=== PATIENT | male | born 1955 | race Caucasian/White ===

== ENCOUNTER 2017-04-24 05:43 | Inpatient (IN) | payer OTHER ==
[2017-04-24] MEDS ORDERED: CEFAZOLIN 1 GM/50 ML (PMX) 50 ML IVPB (06:00)
[2017-04-24 06:37] LABS: ADD MAN DIFF? NO
[2017-04-24 06:40] LABS: WHITE BLOOD COUNT 5.9 10^3/ul (4.8-10.8)
[2017-04-24 06:40] LABS: BASOPHIL # 0.1 10^3/ul (0.0-0.1); BASOPHILS % 0.9 % (0.0-2.0); EOSINOPHILS # 0.2 10^3/ul (0.0-0.5); EOSINOPHILS % 3.6 % (0.0-7.0); HEMATOCRIT 44.7 % (42.0-52.0); HEMOGLOBIN 15.4 g/dl (14.0-18.0); LYMPHOCYTES # 1.8 10^3/ul (0.8-2.9); LYMPHOCYTES % 30.9 % (15.0-51.0); MEAN CORPUSCULAR HEMOGLOBIN 31.5 pg (29.0-33.0); MEAN CORPUSCULAR HGB CONC 34.5 g/dl (32.0-37.0); MEAN CORPUSCULAR VOLUME 91.4 fl (82.0-101.0); MEAN PLATELET VOLUME 11.5 fl (7.4-10.4); MONOCYTE # 0.5 10^3/ul (0.3-0.9); MONOCYTES % 8.5 % (0.0-11.0); NEUTROPHIL # 3.3 10^3/ul (1.6-7.5); NEUTROPHILS % 55.9 % (39.0-77.0); PLATELET COUNT 164 10^3/UL (140-415); RED BLOOD COUNT 4.89 10^6/ul (4.70-6.10); RED CELL DISTRIBUTION WIDTH 12.9 % (11.5-14.5)
[2017-04-24] MEDS ORDERED: SUCCINYLCHOLINE CHLORIDE 100 MG/5 ML SYG IV (07:00)
[2017-04-24] MEDS ORDERED: EPHEDrine SULFATE 50 MG/5 ML SYG (07:00)
[2017-04-24 07:05] LABS: INR 0.99; PROTIME 13.2 Sec (11.9-14.9)
[2017-04-24 07:10] LABS: ALANINE AMINOTRANSFERASE 78 IU/L (13-69); ALBUMIN 4.7 g/dl (3.3-4.9); ALBUMIN/GLOBULIN RATIO 1.46; ALKALINE PHOSPHATASE 94 IU/L (42-121); ANION GAP 17 (8-16); ASPARTATE AMINO TRANSFERASE 50 IU/L (15-46); BILIRUBIN,INDIRECT 0.5 mg/dl (0-1.1); BILIRUBIN,TOTAL 0.5 mg/dl (0.2-1.3); CARBON DIOXIDE 27 mmol/L (21-31); CHLORIDE 103 mmol/L (97-110); GLUCOSE 128 mg/dl (70-220); TOTAL PROTEIN 7.9 g/dl (6.1-8.1)
[2017-04-24 07:12] LABS: BLOOD UREA NITROGEN 16 mg/dl (7-20); CALCIUM 8.9 mg/dl (8.4-10.2); CREATININE 1.02 mg/dl (0.61-1.24); SODIUM 144 mmol/L (135-144)
[2017-04-24 07:24] LABS: PARTIAL THROMBOPLASTIN TIME 37.1 Sec (25.0-35.0)
[2017-04-24] MEDS ORDERED: CEFAZOLIN 1 GM INJ (07:35)
[2017-04-24] MEDS ORDERED: PROPOFOL 20 ML (07:35)
[2017-04-24] MEDS ORDERED: ROCURONIUM 50 MG INJ (07:35)
[2017-04-24] MEDS ORDERED: NEOSTIGMINE 3 MG/3 ML SYRINGE (07:35)
[2017-04-24] MEDS ORDERED: MIDAZOLAM 1 MG/ML 2 ML INJ (07:36)
[2017-04-24] MEDS ORDERED: DEXAMETHASONE 4 MG/ML 1 ML INJ (07:36)
[2017-04-24] MEDS ORDERED: FENTAnyl 50 MCG/ML VIAL (07:36)
[2017-04-24] MEDS ORDERED: ONDANSETRON 4 MG INJ (07:36)
[2017-04-24] MEDS ORDERED: morphine SULFATE/PF (10 MG/10 ML) INJ (07:40)
[2017-04-24] MEDS ORDERED: PHENYLephrine (100 MCG/ML) 5ML SYG (08:00)
[2017-04-24] MEDS: NEOMYC/POLYMYX/BACIT 30 GM OINT (08:36)
[2017-04-24] MEDS: POLYMYXIN/BACITRACIN 1L IRRIG (08:38)
[2017-04-24] MEDS: TRANEXAMIC ACID 1,000 MG in DEXTROSE 5% 100 ML IV (09:00)
[2017-04-24] MEDS ORDERED: SUGAMMADEX SODIUM 200 MG/2 ML VIAL IV (09:46)
[2017-04-24] MEDS ORDERED: NALBUPHINE HCL (10 MG/1 ML) INJ IV (10:30)
[2017-04-24] MEDS ORDERED: hydrALAzine 20 MG INJ IV (10:30)
[2017-04-24] MEDS ORDERED: OXYCODONE/ACETAMINOPHEN (5/325) TAB PO ×2 (10:30)
[2017-04-24] MEDS ORDERED: TRIMETHOBENZAMIDE 100 MG/ML VIAL IM ×2 (10:30)
[2017-04-24] MEDS ORDERED: ZOLPIDEM 5 MG TAB PO (10:30)
[2017-04-24] MEDS ORDERED: HYDROmorphONE (0.2 MG/ML) 10ML SYG IV ×3 (10:30)
[2017-04-24] MEDS ORDERED: MEPERIDINE 25 MG INJ IV (10:30)
[2017-04-24] MEDS ORDERED: LABETALOL HCL 20MG INJ IV (10:30)
[2017-04-24] MEDS ORDERED: HYDROmorphONE 0.5 MG/0.5 ML SYG IV (10:30)
[2017-04-24] MEDS ORDERED: NALOXONE (0.4 MG/ML) INJ IV (10:30)
[2017-04-24] MEDS ORDERED: EPHEDrine SULFATE 50 MG/5 ML SYG IV (10:30)
[2017-04-24] MEDS ORDERED: FENTAnyl 50 MCG/ML VIAL IV ×3 (10:30)
[2017-04-24] MEDS ORDERED: ONDANSETRON 4 MG INJ IV ×2 (10:30)
[2017-04-24] MEDS ORDERED: MIDAZOLAM 1 MG/ML 2 ML INJ IV (10:30)
[2017-04-24] MEDS ORDERED: DIPHENHYDRAMINE 50 MG INJ IV (10:30)
[2017-04-24] MEDS ORDERED: ALBUTEROL 0.083% (NEB) 2.5 MG/3 ML AMP (10:32)
[2017-04-24] MEDS: ALBUTEROL 0.083% (NEB) 2.5 MG/3 ML AMP HHN (10:52)
[2017-04-24] MEDS: IPRATROPIUM (NEB) 0.5 MG/2.5 ML AMP HHN (10:52)
[2017-04-24 11:16] LABS: ADD MAN DIFF? NO
[2017-04-24 11:31] LABS: WHITE BLOOD COUNT 6.6 10^3/ul (4.8-10.8)
[2017-04-24 11:31] LABS: BASOPHIL # 0.1 10^3/ul (0.0-0.1); BASOPHILS % 0.9 % (0.0-2.0); EOSINOPHILS # 0.1 10^3/ul (0.0-0.5); EOSINOPHILS % 1.1 % (0.0-7.0); HEMOGLOBIN 13.2 g/dl (14.0-18.0); LYMPHOCYTES # 1.6 10^3/ul (0.8-2.9); MEAN CORPUSCULAR HEMOGLOBIN 31.1 pg (29.0-33.0); MEAN CORPUSCULAR VOLUME 94.1 fl (82.0-101.0); MEAN PLATELET VOLUME 11.8 fl (7.4-10.4); MONOCYTE # 0.2 10^3/ul (0.3-0.9); MONOCYTES % 2.3 % (0.0-11.0); NEUTROPHIL # 4.7 10^3/ul (1.6-7.5); NEUTROPHILS % 71.2 % (39.0-77.0); PLATELET COUNT 133 10^3/UL (140-415); POSITIVE DIFF @See below; RED BLOOD COUNT 4.25 10^6/ul (4.70-6.10)
[2017-04-24] MEDS: CEFAZOLIN 1 GM/50 ML (PMX) 50 ML IVPB ×2 (11:40→18:44)
[2017-04-24 11:41] LABS: ANION GAP 16 (8-16); BLOOD UREA NITROGEN 13 mg/dl (7-20); CARBON DIOXIDE 24 mmol/L (21-31); CHLORIDE 104 mmol/L (97-110); CREATININE 0.83 mg/dl (0.61-1.24); GLUCOSE 151 mg/dl (70-220); SODIUM 141 mmol/L (135-144)
[2017-04-24 11:45] LABS: POTASSIUM 3.2 mmol/L (3.5-5.1)
[2017-04-24] MEDS: POTASSIUM CHLORIDE (SR) 20 MEQ TAB PO (13:47)
[2017-04-24] MEDS: SOD CHLORIDE 0.9% 1,000 ML IV (14:12)
[2017-04-24] MEDS ORDERED: GLUCOSE GEL 15 GRAM TUBE BUCCAL (14:30)
[2017-04-24] MEDS ORDERED: DEXTROSE 50% 50 ML SYRINGE IV ×2 (14:30)
[2017-04-24] MEDS ORDERED: GLUCAGON 1 MG INJ IM (14:30)
[2017-04-24] MEDS ORDERED: GLUCOSE GEL 15 GRAM TUBE PO ×2 (14:30)
[2017-04-24] MEDS: KETOROLAC 30 MG INJ IV (14:57)
[2017-04-24] MEDS: INSULIN ASPART [NOVOLOG] 3 ML PEN SC ×2 (17:55→20:44)
[2017-04-24] MEDS: HYDROmorphONE 0.5 MG/0.5 ML SYG IV ×3 (18:44→23:56)
[2017-04-24] MEDS: AMITRIPTYLINE 25 MG TAB PO (20:44)
[2017-04-24] MEDS: ATORVASTATIN 40 MG TAB PO (20:44)
[2017-04-25] MEDS: KETOROLAC 30 MG INJ IV ×2 (00:21→06:54)
[2017-04-25] MEDS: ACCU-CHEK XX (02:00)
[2017-04-25] MEDS: CEFAZOLIN 1 GM/50 ML (PMX) 50 ML IVPB ×3 (03:28→19:25)
[2017-04-25] MEDS: HYDROmorphONE 0.5 MG/0.5 ML SYG IV ×4 (05:44→23:53)
[2017-04-25 06:27] LABS: WHITE BLOOD COUNT 9.9 10^3/ul (4.8-10.8)
[2017-04-25 06:27] LABS: HEMATOCRIT 36.1 % (42.0-52.0); HEMOGLOBIN 12.1 g/dl (14.0-18.0); MEAN CORPUSCULAR HEMOGLOBIN 31.5 pg (29.0-33.0); MEAN CORPUSCULAR HGB CONC 33.5 g/dl (32.0-37.0); PLATELET COUNT 135 10^3/UL (140-415); POSITIVE DIFF @See below; RED BLOOD COUNT 3.84 10^6/ul (4.70-6.10)
[2017-04-25 06:41] LABS: ADD MAN DIFF? YES
[2017-04-25 07:12] LABS: ANION GAP 14 (8-16); CALCIUM 7.8 mg/dl (8.4-10.2); CARBON DIOXIDE 25 mmol/L (21-31); CHLORIDE 106 mmol/L (97-110); CREATININE 0.73 mg/dl (0.61-1.24); GLUCOSE 120 mg/dl (70-220); POTASSIUM 3.8 mmol/L (3.5-5.1); SODIUM 141 mmol/L (135-144)
[2017-04-25 07:49] LABS: BLOOD UREA NITROGEN 14 mg/dl (7-20)
[2017-04-25] MEDS: INSULIN ASPART [NOVOLOG] 3 ML PEN SC ×4 (07:50→21:00)
[2017-04-25] MEDS: ALLOPURINOL 100 MG TAB PO (08:45)
[2017-04-25] MEDS: ALBUTEROL 0.5% (NEB) 2.5 MG/0.5 ML AMP INH ×2 (09:53→14:08)
[2017-04-25 10:25] LABS: ANISOCYTOSIS 1+ (0-0); BAND NEUTROPHILS #M 0.5 10^3/ul (0.0-0.6); BAND NEUTROPHILS % (M) 6 % (0-4); BASOPHILS % (M) 1 % (0-2); EOSINOPHILS % (M) 1 % (0-7); GIANT THROMBO% (M) 1 % (0-0); LYMPHOCYTES #M 1.3 10^3/ul (0.8-2.9); LYMPHOCYTES % (M) 14 % (15-51); MONOCYTE #M 0.6 10^3/ul (0.3-0.9); MONOCYTES % (M) 7 % (0-11); PLATELET ESTIMATE DECREASED; POLYCHROMASIA 1+ (0-0); REACTIVE LYMPHOCYTES% (M) 1 % (0-0); ROULEAU 1+ (0-0); SEGMENTED NEUTROPHILS (M) % 70 % (39-77)
[2017-04-25] MEDS: SOD CHLORIDE 0.9% 1,000 ML IV (11:43)
[2017-04-25] MEDS: HYDROCODONE/APAP (10/325) TAB PO ×3 (11:46→20:21)
[2017-04-25] MEDS: AMLODIPINE 10 MG TAB PO (12:47)
[2017-04-25 13:37] LABS: ADD UMIC YES; UR ASCORBIC ACID NEGATIVE (NEGATIVE); UR BILIRUBIN (Dip) NEGATIVE (NEGATIVE); UR BLOOD (Dip) 3+ mg/dL (NEGATIVE); UR CLARITY CLEAR (CLEAR); UR COLOR AMBER (YELLOW); UR GLUCOSE (Dip) NEGATIVE (NEGATIVE); UR KETONES (Dip) NEGATIVE (NEGATIVE); UR LEUKOCYTE ESTERASE (Dip) TRACE Leu/ul (NEGATIVE); UR MUCUS MODERATE /HPF (NONE SEEN); UR NITRITE (Dip) NEGATIVE (NEGATIVE); UR RBC > 182 /HPF (0-5); UR SPECIFIC GRAVITY (Dip) 1.026 (1.003-1.030); UR SQUAMOUS EPITHELIAL CELL FEW /HPF (FEW); UR TOTAL PROTEIN (Dip) 2+ mg/dl (NEGATIVE); UR UROBILINOGEN (Dip) NEGATIVE (NEGATIVE); UR WBC 25 /HPF (0-5)
[2017-04-25] MEDS ORDERED: ALBUTEROL/IPRATROPIUM (NEB) 3 ML AMP HHN (17:00)
[2017-04-25] MEDS: ALBUTEROL/IPRATROPIUM (NEB) 3 ML AMP HHN (19:10)
[2017-04-25] MEDS: AMITRIPTYLINE 25 MG TAB PO (20:22)
[2017-04-25] MEDS: ATORVASTATIN 40 MG TAB PO (20:22)
[2017-04-26] MEDS: ALBUTEROL/IPRATROPIUM (NEB) 3 ML AMP HHN ×4 (01:15→19:16)
[2017-04-26] MEDS: HYDROCODONE/APAP (10/325) TAB PO ×5 (01:36→20:52)
[2017-04-26] MEDS: ACCU-CHEK XX (02:00)
[2017-04-26] MEDS: ALPRAZOLAM 1 MG TAB PO (02:01)
[2017-04-26] MEDS: KETOROLAC 30 MG INJ IV (02:01)
[2017-04-26] MEDS: CEFAZOLIN 1 GM/50 ML (PMX) 50 ML IVPB ×2 (04:46→11:38)
[2017-04-26 05:37] LABS: ADD MAN DIFF? NO
[2017-04-26 05:43] LABS: BASOPHIL # 0.1 10^3/ul (0.0-0.1); BASOPHILS % 0.6 % (0.0-2.0); EOSINOPHILS # 0.1 10^3/ul (0.0-0.5); EOSINOPHILS % 1.1 % (0.0-7.0); HEMATOCRIT 37.8 % (42.0-52.0); HEMOGLOBIN 12.8 g/dl (14.0-18.0); LYMPHOCYTES # 1.3 10^3/ul (0.8-2.9); LYMPHOCYTES % 15.5 % (15.0-51.0); MEAN CORPUSCULAR HEMOGLOBIN 31.2 pg (29.0-33.0); MEAN CORPUSCULAR HGB CONC 33.9 g/dl (32.0-37.0); MEAN CORPUSCULAR VOLUME 92.2 fl (82.0-101.0); MEAN PLATELET VOLUME 11.9 fl (7.4-10.4); MONOCYTE # 0.6 10^3/ul (0.3-0.9); MONOCYTES % 7.3 % (0.0-11.0); NEUTROPHIL # 6.2 10^3/ul (1.6-7.5); NEUTROPHILS % 75.1 % (39.0-77.0); PLATELET COUNT 134 10^3/UL (140-415); RED CELL DISTRIBUTION WIDTH 12.7 % (11.5-14.5)
[2017-04-26 05:43] LABS: WHITE BLOOD COUNT 8.3 10^3/ul (4.8-10.8)
[2017-04-26 06:24] LABS: ANION GAP 11 (8-16); BLOOD UREA NITROGEN 10 mg/dl (7-20); CALCIUM 8.4 mg/dl (8.4-10.2); CARBON DIOXIDE 30 mmol/L (21-31); CHLORIDE 101 mmol/L (97-110); GLUCOSE 132 mg/dl (70-220); POTASSIUM 3.3 mmol/L (3.5-5.1); SODIUM 139 mmol/L (135-144)
[2017-04-26] MEDS: INSULIN ASPART [NOVOLOG] 3 ML PEN SC ×4 (07:50→20:17)
[2017-04-26] MEDS: METOPROLOL 50 MG TAB PO (08:24)
[2017-04-26] MEDS: HYDROCHLOROTHIAZIDE 25 MG TAB PO (08:24)
[2017-04-26] MEDS: VALSARTAN 80 MG TAB PO (08:24)
[2017-04-26] MEDS: POTASSIUM CHLORIDE (SR) 20 MEQ TAB PO (08:24)
[2017-04-26] MEDS: ALLOPURINOL 100 MG TAB PO (08:25)
[2017-04-26] MEDS: AMLODIPINE 10 MG TAB PO (08:25)
[2017-04-26 16:26] LABS: AADO2 Arterial 87.8 mmHg (7.0-24.0); Allen Test ACCEPTAB; Arterial Base Excess 5.3 mmol/L (-3.0-3); Arterial Blood Gas Oxygen Sat 90.1 mmHG (95.0-98.0); Arterial COHb 0.9 % (0.0-3.0); Arterial Fraction of Oxyhgb 89.1 % (93.0-99.0); Arterial HCO3 29.3 mmol/L (22.0-26.0); Arterial MetHb 0.2 % (0.0-1.5); Arterial Total Hemglobin 14.6 g/dl (12.0-18.0); Arterial pCO2 40.8 mmhg (35-45); MODE NASAL CANNULA; Site Left Radial
[2017-04-26] MEDS: ASPIRIN (EC) 325 MG TAB PO (20:17)
[2017-04-26] MEDS: AMITRIPTYLINE 25 MG TAB PO (20:17)
[2017-04-26] MEDS: ATORVASTATIN 40 MG TAB PO (20:17)
[2017-04-27] MEDS: ACCU-CHEK XX (01:37)
[2017-04-27] MEDS: ALBUTEROL/IPRATROPIUM (NEB) 3 ML AMP HHN ×4 (01:37→19:58)
[2017-04-27 05:28] LABS: ADD MAN DIFF? NO
[2017-04-27 05:34] LABS: BASOPHIL # 0.1 10^3/ul (0.0-0.1); EOSINOPHILS # 0.3 10^3/ul (0.0-0.5); MONOCYTE # 0.6 10^3/ul (0.3-0.9); POSITIVE DIFF @See below; RED BLOOD COUNT 4.19 10^6/ul (4.70-6.10)
[2017-04-27] MEDS: HYDROCODONE/APAP (10/325) TAB PO ×3 (05:43→15:57)
[2017-04-27 06:00] LABS: ANION GAP 14 (8-16); BLOOD UREA NITROGEN 14 mg/dl (7-20); CARBON DIOXIDE 33 mmol/L (21-31); CHLORIDE 95 mmol/L (97-110); CREATININE 0.91 mg/dl (0.61-1.24); GLUCOSE 116 mg/dl (70-220); HEMATOCRIT 38.9 % (42.0-52.0); HEMOGLOBIN 13.2 g/dl (14.0-18.0); MEAN CORPUSCULAR HEMOGLOBIN 31.5 pg (29.0-33.0); MEAN CORPUSCULAR HGB CONC 33.9 g/dl (32.0-37.0); MEAN CORPUSCULAR VOLUME 92.8 fl (82.0-101.0); POTASSIUM 3.9 mmol/L (3.5-5.1); SODIUM 138 mmol/L (135-144)
[2017-04-27 06:00] LABS: WHITE BLOOD COUNT 7.6 10^3/ul (4.8-10.8)
[2017-04-27 06:01] LABS: BASOPHILS % 0.8 % (0.0-2.0); EOSINOPHILS % 3.8 % (0.0-7.0); LYMPHOCYTES # 1.7 10^3/ul (0.8-2.9); LYMPHOCYTES % 22.9 % (15.0-51.0); MEAN PLATELET VOLUME 11.8 fl (7.4-10.4); MONOCYTES % 7.9 % (0.0-11.0); NEUTROPHIL # 4.8 10^3/ul (1.6-7.5); NEUTROPHILS % 64.1 % (39.0-77.0); PLATELET COUNT 144 10^3/UL (140-415); RED CELL DISTRIBUTION WIDTH 12.8 % (11.5-14.5)
[2017-04-27] MEDS: INSULIN ASPART [NOVOLOG] 3 ML PEN SC ×4 (07:50→20:41)
[2017-04-27] MEDS: VALSARTAN 80 MG TAB PO (08:53)
[2017-04-27] MEDS: HYDROCHLOROTHIAZIDE 25 MG TAB PO (08:53)
[2017-04-27] MEDS: ASPIRIN (EC) 325 MG TAB PO ×2 (08:53→20:34)
[2017-04-27] MEDS: METOPROLOL 50 MG TAB PO (08:54)
[2017-04-27] MEDS: AMLODIPINE 10 MG TAB PO (08:54)
[2017-04-27] MEDS: ALLOPURINOL 100 MG TAB PO (08:54)
[2017-04-27] MEDS: ATORVASTATIN 40 MG TAB PO (20:34)
[2017-04-27] MEDS: GUAIFENESIN/DM 5ML CUP PO (20:34)
[2017-04-27] MEDS: AMITRIPTYLINE 25 MG TAB PO (20:35)
[2017-04-28] MEDS: HYDROCODONE/APAP (10/325) TAB PO (01:33)
[2017-04-28] MEDS: ALBUTEROL/IPRATROPIUM (NEB) 3 ML AMP HHN ×2 (01:35→01:38)
[2017-04-28] MEDS: ACCU-CHEK XX (02:00)
[2017-04-28] MEDS: LEVALBUTEROL (NEB) 0.63 MG/3 ML AMP HHN ×4 (03:58→19:33)
[2017-04-28 05:21] LABS: ADD MAN DIFF? NO
[2017-04-28 05:38] LABS: WHITE BLOOD COUNT 7.9 10^3/ul (4.8-10.8)
[2017-04-28 05:38] LABS: BASOPHIL # 0.1 10^3/ul (0.0-0.1); BASOPHILS % 0.6 % (0.0-2.0); EOSINOPHILS # 0.4 10^3/ul (0.0-0.5); EOSINOPHILS % 5.3 % (0.0-7.0); HEMATOCRIT 39.6 % (42.0-52.0); HEMOGLOBIN 13.3 g/dl (14.0-18.0); LYMPHOCYTES # 1.7 10^3/ul (0.8-2.9); LYMPHOCYTES % 21.1 % (15.0-51.0); MEAN CORPUSCULAR HEMOGLOBIN 31.4 pg (29.0-33.0); MEAN CORPUSCULAR HGB CONC 33.6 g/dl (32.0-37.0); MEAN CORPUSCULAR VOLUME 93.4 fl (82.0-101.0); MEAN PLATELET VOLUME 11.9 fl (7.4-10.4); MONOCYTE # 0.7 10^3/ul (0.3-0.9); MONOCYTES % 8.6 % (0.0-11.0); NEUTROPHILS % 63.8 % (39.0-77.0); PLATELET COUNT 168 10^3/UL (140-415); RED BLOOD COUNT 4.24 10^6/ul (4.70-6.10); RED CELL DISTRIBUTION WIDTH 12.6 % (11.5-14.5)
[2017-04-28 06:31] LABS: ANION GAP 17 (8-16); BLOOD UREA NITROGEN 17 mg/dl (7-20); CALCIUM 8.9 mg/dl (8.4-10.2); CARBON DIOXIDE 31 mmol/L (21-31); CHLORIDE 93 mmol/L (97-110); CREATININE 0.96 mg/dl (0.61-1.24); GLUCOSE 118 mg/dl (70-220); POTASSIUM 4.2 mmol/L (3.5-5.1); SODIUM 137 mmol/L (135-144)
[2017-04-28] MEDS: SENNA TAB PO (06:32)
[2017-04-28] MEDS: INSULIN ASPART [NOVOLOG] 3 ML PEN SC ×4 (07:50→20:56)
[2017-04-28] MEDS: HYDROmorphONE 0.5 MG/0.5 ML SYG IV (07:52)
[2017-04-28] MEDS: HYDROCHLOROTHIAZIDE 25 MG TAB PO (09:11)
[2017-04-28] MEDS: METOPROLOL 50 MG TAB PO (09:11)
[2017-04-28] MEDS: VALSARTAN 80 MG TAB PO (09:11)
[2017-04-28] MEDS: ALLOPURINOL 100 MG TAB PO (09:11)
[2017-04-28] MEDS: AMLODIPINE 10 MG TAB PO (09:12)
[2017-04-28] MEDS: ASPIRIN (EC) 325 MG TAB PO ×2 (09:12→20:53)
[2017-04-28] MEDS: ATORVASTATIN 40 MG TAB PO (20:53)
[2017-04-28] MEDS: AMITRIPTYLINE 25 MG TAB PO (20:53)
[2017-04-29] MEDS: LEVALBUTEROL (NEB) 0.63 MG/3 ML AMP HHN ×4 (01:41→21:27)
[2017-04-29] MEDS: ACCU-CHEK XX (02:00)
[2017-04-29 05:17] LABS: ADD MAN DIFF? NO
[2017-04-29 05:24] LABS: WHITE BLOOD COUNT 7.7 10^3/ul (4.8-10.8)
[2017-04-29 05:24] LABS: BASOPHIL # 0.1 10^3/ul (0.0-0.1); BASOPHILS % 0.6 % (0.0-2.0); EOSINOPHILS # 0.4 10^3/ul (0.0-0.5); EOSINOPHILS % 5.5 % (0.0-7.0); HEMATOCRIT 38.7 % (42.0-52.0); HEMOGLOBIN 12.8 g/dl (14.0-18.0); LYMPHOCYTES # 1.4 10^3/ul (0.8-2.9); LYMPHOCYTES % 18.1 % (15.0-51.0); MEAN CORPUSCULAR HEMOGLOBIN 30.8 pg (29.0-33.0); MEAN CORPUSCULAR HGB CONC 33.1 g/dl (32.0-37.0); MEAN CORPUSCULAR VOLUME 93.3 fl (82.0-101.0); MEAN PLATELET VOLUME 11.7 fl (7.4-10.4); MONOCYTE # 0.8 10^3/ul (0.3-0.9); MONOCYTES % 10.5 % (0.0-11.0); NEUTROPHILS % 64.4 % (39.0-77.0); PLATELET COUNT 176 10^3/UL (140-415); RED BLOOD COUNT 4.15 10^6/ul (4.70-6.10); RED CELL DISTRIBUTION WIDTH 12.8 % (11.5-14.5)
[2017-04-29 06:05] LABS: ANION GAP 16 (8-16); BLOOD UREA NITROGEN 20 mg/dl (7-20); CALCIUM 9.1 mg/dl (8.4-10.2); CARBON DIOXIDE 32 mmol/L (21-31); CHLORIDE 94 mmol/L (97-110); CREATININE 0.92 mg/dl (0.61-1.24); GLUCOSE 121 mg/dl (70-220); POTASSIUM 4.5 mmol/L (3.5-5.1); SODIUM 137 mmol/L (135-144)
[2017-04-29] MEDS: INSULIN ASPART [NOVOLOG] 3 ML PEN SC ×4 (07:50→21:00)
[2017-04-29] MEDS: ALLOPURINOL 100 MG TAB PO (08:21)
[2017-04-29] MEDS: AMLODIPINE 10 MG TAB PO (08:21)
[2017-04-29] MEDS: METOPROLOL 50 MG TAB PO (08:22)
[2017-04-29] MEDS: HYDROCODONE/APAP (10/325) TAB PO ×2 (08:22→17:43)
[2017-04-29] MEDS: ASPIRIN (EC) 325 MG TAB PO ×2 (08:22→21:09)
[2017-04-29] MEDS: HYDROCHLOROTHIAZIDE 25 MG TAB PO (08:22)
[2017-04-29] MEDS: VALSARTAN 80 MG TAB PO (08:22)
[2017-04-29] MEDS: ATORVASTATIN 40 MG TAB PO (21:08)
[2017-04-29] MEDS: AMITRIPTYLINE 25 MG TAB PO (21:09)
[2017-04-30] MEDS: LEVALBUTEROL (NEB) 0.63 MG/3 ML AMP HHN ×4 (01:22→20:00)
[2017-04-30] MEDS: ACCU-CHEK XX (01:46)
[2017-04-30 05:36] LABS: ADD MAN DIFF? NO
[2017-04-30 05:39] LABS: BASOPHILS % 0.5 % (0.0-2.0); EOSINOPHILS # 0.5 10^3/ul (0.0-0.5); EOSINOPHILS % 7.2 % (0.0-7.0); HEMATOCRIT 38.1 % (42.0-52.0); HEMOGLOBIN 12.6 g/dl (14.0-18.0); LYMPHOCYTES # 1.4 10^3/ul (0.8-2.9); LYMPHOCYTES % 18.6 % (15.0-51.0); MEAN CORPUSCULAR HEMOGLOBIN 31.2 pg (29.0-33.0); MEAN CORPUSCULAR HGB CONC 33.1 g/dl (32.0-37.0); MEAN CORPUSCULAR VOLUME 94.3 fl (82.0-101.0); MEAN PLATELET VOLUME 11.8 fl (7.4-10.4); MONOCYTE # 0.8 10^3/ul (0.3-0.9); MONOCYTES % 11.1 % (0.0-11.0); NEUTROPHIL # 4.6 10^3/ul (1.6-7.5); NEUTROPHILS % 61.8 % (39.0-77.0); PLATELET COUNT 184 10^3/UL (140-415); RED BLOOD COUNT 4.04 10^6/ul (4.70-6.10); RED CELL DISTRIBUTION WIDTH 12.9 % (11.5-14.5)
[2017-04-30 05:39] LABS: WHITE BLOOD COUNT 7.5 10^3/ul (4.8-10.8)
[2017-04-30 05:57] LABS: ANION GAP 13 (8-16); BLOOD UREA NITROGEN 20 mg/dl (7-20); CALCIUM 9.1 mg/dl (8.4-10.2); CARBON DIOXIDE 35 mmol/L (21-31); CHLORIDE 95 mmol/L (97-110); CREATININE 0.87 mg/dl (0.61-1.24); GLUCOSE 116 mg/dl (70-220); POTASSIUM 4.2 mmol/L (3.5-5.1); SODIUM 139 mmol/L (135-144)
[2017-04-30] MEDS: INSULIN ASPART [NOVOLOG] 3 ML PEN SC ×4 (07:50→20:36)
[2017-04-30] MEDS: METOPROLOL 50 MG TAB PO (08:23)
[2017-04-30] MEDS: AMLODIPINE 10 MG TAB PO (08:23)
[2017-04-30] MEDS: ALLOPURINOL 100 MG TAB PO (08:24)
[2017-04-30] MEDS: HYDROCHLOROTHIAZIDE 25 MG TAB PO (08:24)
[2017-04-30] MEDS: HYDROCODONE/APAP (10/325) TAB PO ×2 (08:24→14:24)
[2017-04-30] MEDS: VALSARTAN 80 MG TAB PO (08:24)
[2017-04-30] MEDS: ASPIRIN (EC) 325 MG TAB PO ×2 (08:25→20:37)
[2017-04-30] MEDS: ENOXAPARIN 40 MG/0.4 ML SYG SC (08:27)
[2017-04-30] MEDS: FLUTICASONE 0.05% 16 GM NAS SPRAY NASAL ×2 (15:00→20:37)
[2017-04-30] MEDS: ATORVASTATIN 40 MG TAB PO (20:37)
[2017-04-30] MEDS: AMITRIPTYLINE 25 MG TAB PO (20:37)
[2017-05-01] MEDS: LEVALBUTEROL (NEB) 0.63 MG/3 ML AMP HHN ×4 (01:05→19:37)
[2017-05-01] MEDS: ACCU-CHEK XX (01:06)
[2017-05-01 05:44] LABS: ADD MAN DIFF? NO
[2017-05-01 06:03] LABS: WHITE BLOOD COUNT 7.1 10^3/ul (4.8-10.8)
[2017-05-01 06:03] LABS: BASOPHIL # 0.1 10^3/ul (0.0-0.1); BASOPHILS % 0.7 % (0.0-2.0); EOSINOPHILS # 0.5 10^3/ul (0.0-0.5); EOSINOPHILS % 6.4 % (0.0-7.0); HEMATOCRIT 37.8 % (42.0-52.0); HEMOGLOBIN 12.3 g/dl (14.0-18.0); LYMPHOCYTES # 1.3 10^3/ul (0.8-2.9); LYMPHOCYTES % 17.9 % (15.0-51.0); MEAN CORPUSCULAR HEMOGLOBIN 30.7 pg (29.0-33.0); MEAN CORPUSCULAR HGB CONC 32.5 g/dl (32.0-37.0); MEAN CORPUSCULAR VOLUME 94.3 fl (82.0-101.0); MEAN PLATELET VOLUME 11.5 fl (7.4-10.4); MONOCYTE # 0.8 10^3/ul (0.3-0.9); MONOCYTES % 10.8 % (0.0-11.0); NEUTROPHIL # 4.5 10^3/ul (1.6-7.5); NEUTROPHILS % 63.1 % (39.0-77.0); PLATELET COUNT 200 10^3/UL (140-415); RED BLOOD COUNT 4.01 10^6/ul (4.70-6.10); RED CELL DISTRIBUTION WIDTH 12.5 % (11.5-14.5)
[2017-05-01 06:34] LABS: ANION GAP 13 (8-16); BLOOD UREA NITROGEN 19 mg/dl (7-20); CALCIUM 8.5 mg/dl (8.4-10.2); CARBON DIOXIDE 31 mmol/L (21-31); CHLORIDE 96 mmol/L (97-110); CREATININE 0.86 mg/dl (0.61-1.24); GLUCOSE 96 mg/dl (70-220); POTASSIUM 3.9 mmol/L (3.5-5.1); SODIUM 136 mmol/L (135-144)
[2017-05-01] MEDS: INSULIN ASPART [NOVOLOG] 3 ML PEN SC ×4 (07:50→20:52)
[2017-05-01] MEDS: HYDROCODONE/APAP (10/325) TAB PO (08:48)
[2017-05-01] MEDS: METOPROLOL 50 MG TAB PO (08:48)
[2017-05-01] MEDS: VALSARTAN 80 MG TAB PO (08:49)
[2017-05-01] MEDS: AMLODIPINE 10 MG TAB PO (08:49)
[2017-05-01] MEDS: HYDROCHLOROTHIAZIDE 25 MG TAB PO (08:49)
[2017-05-01] MEDS: FLUTICASONE 0.05% 16 GM NAS SPRAY NASAL ×2 (08:49→20:52)
[2017-05-01] MEDS: ALLOPURINOL 100 MG TAB PO (08:49)
[2017-05-01] MEDS: ENOXAPARIN 40 MG/0.4 ML SYG SC (08:52)
[2017-05-01] MEDS: ATORVASTATIN 40 MG TAB PO (20:52)
[2017-05-01] MEDS: AMITRIPTYLINE 25 MG TAB PO (20:52)
[2017-05-02] MEDS: ACCU-CHEK XX (01:29)
[2017-05-02] MEDS: LEVALBUTEROL (NEB) 0.63 MG/3 ML AMP HHN ×3 (01:53→13:18)
[2017-05-02] MEDS: INSULIN ASPART [NOVOLOG] 3 ML PEN SC ×3 (07:50→17:34)
[2017-05-02] MEDS: FLUTICASONE 0.05% 16 GM NAS SPRAY NASAL (08:36)
[2017-05-02] MEDS: HYDROCHLOROTHIAZIDE 25 MG TAB PO (08:38)
[2017-05-02] MEDS: VALSARTAN 80 MG TAB PO (08:38)
[2017-05-02] MEDS: AMLODIPINE 10 MG TAB PO (08:39)
[2017-05-02] MEDS: METOPROLOL 50 MG TAB PO (08:39)
[2017-05-02] MEDS: ALLOPURINOL 100 MG TAB PO (08:39)
[2017-05-02] MEDS: SENNA TAB PO (08:40)
[2017-05-02] MEDS: ENOXAPARIN 40 MG/0.4 ML SYG SC (08:43)
[2017-05-02] MEDS: HYDROCODONE/APAP (10/325) TAB PO (18:54)
== END 2017-05-02 21:30 | DRG 470 ==
LOC: REC 05:43 → MS1 12:29
PROC: 0SRD0J9 Replacement of Left Knee Joint with Synthetic Substitute, Cemented, Open Approach (ICD-10-PCS; principal; 2017-04-24 07:30)
DX: M17.12 Unilateral primary osteoarthritis, left knee (principal); E11.8 Type 2 diabetes mellitus with unspecified complications; Z68.41 Body mass index [BMI] 40.0-44.9, adult; E87.6 Hypokalemia; E66.01 Morbid (severe) obesity due to excess calories; G47.30 Sleep apnea, unspecified; E11.9 Type 2 diabetes mellitus without complications; E78.5 Hyperlipidemia, unspecified; I10 Essential (primary) hypertension; J44.9 Chronic obstructive pulmonary disease, unspecified; N40.0 Benign prostatic hyperplasia without lower urinary tract symptoms; Z87.891 Personal history of nicotine dependence; Z86.11 Personal history of tuberculosis; Z79.2 Long term (current) use of antibiotics; Z79.84 Long term (current) use of oral hypoglycemic drugs; Z79.82 Long term (current) use of aspirin
CPT/HCPCS: 36600; 71045; 80048; 80053; 81001; 82803; 82962; 85025; 85610; 85730; 86850; 86900; 86901; 87086; 88304; 88311; 93005; 94640; 94664; 97110; 97116; 97163; 97530

== ENCOUNTER 2017-11-13 09:28 | Inpatient (IN) | payer OTHER ==
[2017-11-13] MEDS: LACTATED RINGER'S 1,000 ML IV (10:00)
[2017-11-13] MEDS ORDERED: BACITRACIN/POLYMYXIN 28.35 GM OINT TOP (14:03)
[2017-11-13] MEDS ORDERED: PROPOFOL 20 ML (15:06)
[2017-11-13] MEDS ORDERED: BUPIVACAINE 0.75%/DEXT (SPINAL) 2 ML INJ (15:06)
[2017-11-13] MEDS ORDERED: LIDOCAINE 1% (MDV) 20 ML INJ (15:06)
[2017-11-13] MEDS: TRANEXAMIC ACID 1,000 MG in DEXTROSE 5% 100 ML IV (15:30)
[2017-11-13] MEDS ORDERED: CEFAZOLIN 1 GM INJ (15:33)
[2017-11-13] MEDS ORDERED: PHENYLephrine (100 MCG/ML) 5ML SYG ×4 (15:35→15:58)
[2017-11-13] MEDS: POLYMYXIN B 500000 UNIT INJ (16:07)
[2017-11-13] MEDS: POLYMYXIN/BACITRACIN 1L IRRIG (16:07)
[2017-11-13] MEDS: BACITRACIN 50000 UNITS INJ (16:07)
[2017-11-13] MEDS ORDERED: PHENYLephrine 10 MG INJ (16:17)
[2017-11-13] MEDS ORDERED: ROPIVACAINE 0.5 % 30 ML VIAL (17:00)
[2017-11-13 17:54] LABS: ADD UMIC NO; UR ASCORBIC ACID NEGATIVE (NEGATIVE); UR BILIRUBIN (Dip) NEGATIVE (NEGATIVE); UR BLOOD (Dip) NEGATIVE (NEGATIVE); UR CLARITY CLEAR (CLEAR); UR COLOR YELLOW (YELLOW); UR GLUCOSE (Dip) NEGATIVE (NEGATIVE); UR KETONES (Dip) NEGATIVE (NEGATIVE); UR LEUKOCYTE ESTERASE (Dip) NEGATIVE Leu/ul (NEGATIVE); UR NITRITE (Dip) NEGATIVE (NEGATIVE); UR SPECIFIC GRAVITY (Dip) 1.017 (1.003-1.030); UR TOTAL PROTEIN (Dip) NEGATIVE (NEGATIVE); UR UROBILINOGEN (Dip) NEGATIVE (NEGATIVE)
[2017-11-13] MEDS ORDERED: CEFAZOLIN 1 GM/50 ML (PMX) 50 ML IVPB (18:35)
[2017-11-13] MEDS: CEFAZOLIN 1 GM/50 ML (PMX) 50 ML IVPB (18:57)
[2017-11-13] MEDS: morphine 2 MG INJ IV ×3 (19:52→23:46)
[2017-11-13] MEDS: HYDROCODONE/APAP (10/325) TAB PO (20:31)
[2017-11-13] MEDS ORDERED: GLUCAGON 1 MG INJ IM (21:00)
[2017-11-13] MEDS ORDERED: DEXTROSE 50% 50 ML SYRINGE IV ×2 (21:00)
[2017-11-13] MEDS ORDERED: GLUCOSE GEL 15 GRAM TUBE PO ×2 (21:00)
[2017-11-13] MEDS ORDERED: GLUCOSE GEL 15 GRAM TUBE BUCCAL (21:00)
[2017-11-13] MEDS: INSULIN ASPART [NOVOLOG] 3 ML PEN SC (21:30)
[2017-11-14] MEDS: HYDROmorphONE 1 MG/ML SYG IV ×3 (01:32→10:43)
[2017-11-14] MEDS: ACCU-CHEK XX (02:00)
[2017-11-14] MEDS: LORAZEPAM 2 MG INJ IV (03:39)
[2017-11-14] MEDS: CEFAZOLIN 1 GM/50 ML (PMX) 50 ML IVPB ×2 (05:09→13:15)
[2017-11-14] MEDS: INSULIN ASPART [NOVOLOG] 3 ML PEN SC ×5 (07:50→20:48)
[2017-11-14 08:53] LABS: ADD MAN DIFF? NO
[2017-11-14] MEDS: ASPIRIN (EC) 325 MG TAB PO (08:59)
[2017-11-14 09:00] LABS: WHITE BLOOD COUNT 10.1 10^3/ul (4.8-10.8)
[2017-11-14 09:00] LABS: BASOPHILS % 0.4 % (0.0-2.0); EOSINOPHILS % 0.1 % (0.0-7.0); HEMOGLOBIN 14.1 g/dl (14.0-18.0); LYMPHOCYTES # 1.1 10^3/ul (0.8-2.9); LYMPHOCYTES % 11.2 % (15.0-51.0); MEAN CORPUSCULAR HGB CONC 33.6 g/dl (32.0-37.0); MEAN CORPUSCULAR VOLUME 92.3 fl (82.0-101.0); MEAN PLATELET VOLUME 11.8 fl (7.4-10.4); MONOCYTE # 0.9 10^3/ul (0.3-0.9); MONOCYTES % 8.4 % (0.0-11.0); NEUTROPHILS % 79.5 % (39.0-77.0); PLATELET COUNT 194 10^3/UL (140-415); RED BLOOD COUNT 4.55 10^6/ul (4.70-6.10); RED CELL DISTRIBUTION WIDTH 14.5 % (11.5-14.5)
[2017-11-14] MEDS: HYDROCODONE/APAP (10/325) TAB PO ×2 (09:03→18:59)
[2017-11-14 09:28] LABS: ANION GAP 16 (8-16); BLOOD UREA NITROGEN 11 mg/dl (7-20); CALCIUM 8.7 mg/dl (8.4-10.2); CARBON DIOXIDE 26 mmol/L (21-31); CHLORIDE 101 mmol/L (97-110); CREATININE 0.72 mg/dl (0.61-1.24); GLUCOSE 136 mg/dl (70-220); POTASSIUM 4.2 mmol/L (3.5-5.1); SODIUM 139 mmol/L (135-144)
[2017-11-14] MEDS: LACTATED RINGER'S 1,000 ML IV (10:30)
[2017-11-14] MEDS: KETOROLAC 30 MG INJ IV (13:16)
[2017-11-14] MEDS ORDERED: ALBUTEROL/IPRATROPIUM (NEB) 3 ML AMP HHN (14:00)
[2017-11-14] MEDS: ALBUTEROL HFA 8 GM INHALER INH ×3 (14:00→22:14)
[2017-11-14] MEDS: METOPROLOL 50 MG TAB PO (20:48)
[2017-11-14] MEDS: ATORVASTATIN 20 MG TAB PO (20:48)
[2017-11-14] MEDS: AMITRIPTYLINE 50 MG TAB PO (20:48)
[2017-11-15] MEDS: ALBUTEROL HFA 8 GM INHALER INH ×6 (02:00→22:00)
[2017-11-15] MEDS: ACCU-CHEK XX (02:00)
[2017-11-15] MEDS: HYDROCODONE/APAP (10/325) TAB PO ×4 (05:52→19:17)
[2017-11-15] MEDS: INSULIN ASPART [NOVOLOG] 3 ML PEN SC ×4 (07:50→21:00)
[2017-11-15] MEDS: HYDROmorphONE 1 MG/ML SYG IV ×4 (09:07→21:04)
[2017-11-15] MEDS: AMLODIPINE 10 MG TAB PO (09:07)
[2017-11-15] MEDS: METOPROLOL 50 MG TAB PO ×2 (09:08→21:59)
[2017-11-15] MEDS: ALLOPURINOL 100 MG TAB PO (09:08)
[2017-11-15] MEDS: ASPIRIN (EC) 325 MG TAB PO (09:08)
[2017-11-15] MEDS: BENAZEPRIL 40 MG TAB PO (09:08)
[2017-11-15] MEDS: ATORVASTATIN 20 MG TAB PO (21:51)
[2017-11-15] MEDS: AMITRIPTYLINE 50 MG TAB PO (21:59)
[2017-11-15] MEDS: ZOLPIDEM 5 MG TAB PO (23:08)
[2017-11-16] MEDS: HYDROmorphONE 1 MG/ML SYG IV (00:31)
[2017-11-16] MEDS: ACCU-CHEK XX (02:00)
[2017-11-16] MEDS: ALBUTEROL HFA 8 GM INHALER INH ×6 (02:00→22:00)
[2017-11-16 05:11] LABS: ADD MAN DIFF? NO
[2017-11-16 05:15] LABS: WHITE BLOOD COUNT 9.6 10^3/ul (4.8-10.8)
[2017-11-16 05:15] LABS: BASOPHIL # 0.1 10^3/ul (0.0-0.1); BASOPHILS % 0.5 % (0.0-2.0); EOSINOPHILS # 0.3 10^3/ul (0.0-0.5); EOSINOPHILS % 3.6 % (0.0-7.0); HEMATOCRIT 36.4 % (42.0-52.0); HEMOGLOBIN 11.8 g/dl (14.0-18.0); LYMPHOCYTES # 1.5 10^3/ul (0.8-2.9); MEAN CORPUSCULAR HEMOGLOBIN 30.6 pg (29.0-33.0); MEAN CORPUSCULAR HGB CONC 32.4 g/dl (32.0-37.0); MEAN CORPUSCULAR VOLUME 94.3 fl (82.0-101.0); MONOCYTE # 0.9 10^3/ul (0.3-0.9); MONOCYTES % 9.6 % (0.0-11.0); NEUTROPHIL # 6.7 10^3/ul (1.6-7.5); NEUTROPHILS % 69.9 % (39.0-77.0); PLATELET COUNT 196 10^3/UL (140-415); POSITIVE DIFF @See below; RED BLOOD COUNT 3.86 10^6/ul (4.70-6.10); RED CELL DISTRIBUTION WIDTH 14.9 % (11.5-14.5)
[2017-11-16 05:46] LABS: ANION GAP 17 (8-16); BLOOD UREA NITROGEN 35 mg/dl (7-20); CALCIUM 8.4 mg/dl (8.4-10.2); CARBON DIOXIDE 26 mmol/L (21-31); CHLORIDE 98 mmol/L (97-110); CREATININE 1.47 mg/dl (0.61-1.24); GLUCOSE 101 mg/dl (70-220); POTASSIUM 4.9 mmol/L (3.5-5.1); SODIUM 136 mmol/L (135-144)
[2017-11-16 05:49] LABS: PHOSPHORUS 6.9 mg/dl (2.5-4.9)
[2017-11-16 05:49] LABS: MAGNESIUM 2.5 mg/dl (1.7-2.5)
[2017-11-16] MEDS: HYDROCODONE/APAP (10/325) TAB PO ×2 (07:10→23:22)
[2017-11-16 07:15] LABS: BAND NEUTROPHILS #M 1.6 10^3/ul (0.0-0.6); BAND NEUTROPHILS % (M) 17 % (0-4); EOSINOPHILS % (M) 2 % (0-7); LYMPHOCYTES #M 1.3 10^3/ul (0.8-2.9); LYMPHOCYTES % (M) 14 % (15-51); MONOCYTE #M 0.6 10^3/ul (0.3-0.9); MONOCYTES % (M) 7 % (0-11); PLATELET ESTIMATE NORMAL; POIKILOCYTOSIS 1+ (0-0); REACTIVE LYMPHOCYTES #M 0.2 10^3/ul (0.0-0.0); REACTIVE LYMPHOCYTES% (M) 3 % (0-0); SEG NEUT #M 5.6 10^3/ul (1.6-7.5); SEGMENTED NEUTROPHILS (M) % 57 % (39-77); SMUDGE%M 14 % (0-0)
[2017-11-16] MEDS: INSULIN ASPART [NOVOLOG] 3 ML PEN SC ×4 (07:50→21:00)
[2017-11-16] MEDS: AMLODIPINE 10 MG TAB PO (08:42)
[2017-11-16] MEDS: ASPIRIN (EC) 325 MG TAB PO (08:42)
[2017-11-16] MEDS: ALLOPURINOL 100 MG TAB PO (08:42)
[2017-11-16] MEDS: METOPROLOL 50 MG TAB PO ×2 (08:42→21:59)
[2017-11-16] MEDS: BENAZEPRIL 40 MG TAB PO (08:43)
[2017-11-16] MEDS: SOD CHLORIDE 0.9% 1,000 ML IV ×2 (16:04→17:48)
[2017-11-16 18:45] LABS: ADD UMIC NO; UR ASCORBIC ACID NEGATIVE (NEGATIVE); UR BACTERIA FEW /HPF (NONE SEEN); UR BILIRUBIN (Dip) NEGATIVE (NEGATIVE); UR BLOOD (Dip) NEGATIVE (NEGATIVE); UR CLARITY SLIGHTLY CLOUDY (CLEAR); UR COLOR AMBER (YELLOW); UR GLUCOSE (Dip) NEGATIVE (NEGATIVE); UR KETONES (Dip) NEGATIVE (NEGATIVE); UR LEUKOCYTE ESTERASE (Dip) NEGATIVE Leu/ul (NEGATIVE); UR MUCUS FEW /HPF (NONE SEEN); UR NITRITE (Dip) NEGATIVE (NEGATIVE); UR RBC 4 /HPF (0-5); UR TOTAL PROTEIN (Dip) NEGATIVE (NEGATIVE); UR UROBILINOGEN (Dip) NEGATIVE (NEGATIVE); UR WBC 5 /HPF (0-5)
[2017-11-16] MEDS: ATORVASTATIN 20 MG TAB PO (21:56)
[2017-11-16] MEDS: AMITRIPTYLINE 50 MG TAB PO (21:59)
[2017-11-17] MEDS: ALBUTEROL HFA 8 GM INHALER INH ×6 (02:00→22:00)
[2017-11-17] MEDS: ACCU-CHEK XX (02:00)
[2017-11-17 05:07] LABS: ADD MAN DIFF? NO
[2017-11-17 05:12] LABS: WHITE BLOOD COUNT 6.4 10^3/ul (4.8-10.8)
[2017-11-17 05:12] LABS: BASOPHILS % 0.3 % (0.0-2.0); EOSINOPHILS # 0.4 10^3/ul (0.0-0.5); EOSINOPHILS % 5.5 % (0.0-7.0); HEMOGLOBIN 10.8 g/dl (14.0-18.0); LYMPHOCYTES # 1.4 10^3/ul (0.8-2.9); LYMPHOCYTES % 21.6 % (15.0-51.0); MEAN CORPUSCULAR HEMOGLOBIN 29.6 pg (29.0-33.0); MEAN CORPUSCULAR HGB CONC 30.9 g/dl (32.0-37.0); MEAN CORPUSCULAR VOLUME 95.9 fl (82.0-101.0); MEAN PLATELET VOLUME 11.3 fl (7.4-10.4); MONOCYTE # 0.7 10^3/ul (0.3-0.9); MONOCYTES % 10.2 % (0.0-11.0); NEUTROPHILS % 61.9 % (39.0-77.0); PLATELET COUNT 168 10^3/UL (140-415); RED BLOOD COUNT 3.65 10^6/ul (4.70-6.10); RED CELL DISTRIBUTION WIDTH 14.4 % (11.5-14.5)
[2017-11-17 05:31] LABS: ANION GAP 12 (8-16); BLOOD UREA NITROGEN 32 mg/dl (7-20); CALCIUM 8.2 mg/dl (8.4-10.2); CARBON DIOXIDE 31 mmol/L (21-31); CHLORIDE 100 mmol/L (97-110); CREATININE 1.12 mg/dl (0.61-1.24); GLUCOSE 105 mg/dl (70-220); POTASSIUM 4.6 mmol/L (3.5-5.1); SODIUM 138 mmol/L (135-144)
[2017-11-17] MEDS: INSULIN ASPART [NOVOLOG] 3 ML PEN SC ×4 (07:50→21:00)
[2017-11-17] MEDS: ALLOPURINOL 100 MG TAB PO (08:08)
[2017-11-17] MEDS: ASPIRIN (EC) 325 MG TAB PO (08:08)
[2017-11-17] MEDS: AMLODIPINE 10 MG TAB PO (08:09)
[2017-11-17] MEDS: METOPROLOL 50 MG TAB PO ×2 (08:09→21:27)
[2017-11-17] MEDS: HYDROCODONE/APAP (10/325) TAB PO ×2 (10:09→21:33)
[2017-11-17] MEDS: AMITRIPTYLINE 50 MG TAB PO (21:26)
[2017-11-17] MEDS: ATORVASTATIN 20 MG TAB PO (21:27)
[2017-11-18] MEDS: ACCU-CHEK XX (02:00)
[2017-11-18] MEDS: ALBUTEROL HFA 8 GM INHALER INH ×6 (02:27→21:20)
[2017-11-18] MEDS: POLYETHYLENE GLYCOL 17 GM PACKET PO (02:27)
[2017-11-18] MEDS: DOCUSATE SODIUM 100 MG CAP PO (02:27)
[2017-11-18] MEDS: HYDROCODONE/APAP (10/325) TAB PO ×2 (05:07→12:21)
[2017-11-18 05:08] LABS: ADD MAN DIFF? NO
[2017-11-18 05:13] LABS: BASOPHILS % 0.6 % (0.0-2.0); EOSINOPHILS # 0.5 10^3/ul (0.0-0.5); EOSINOPHILS % 9.5 % (0.0-7.0); HEMATOCRIT 39.1 % (42.0-52.0); HEMOGLOBIN 12.6 g/dl (14.0-18.0); LYMPHOCYTES # 1.1 10^3/ul (0.8-2.9); LYMPHOCYTES % 21.7 % (15.0-51.0); MEAN CORPUSCULAR HEMOGLOBIN 31.1 pg (29.0-33.0); MEAN CORPUSCULAR HGB CONC 32.2 g/dl (32.0-37.0); MEAN CORPUSCULAR VOLUME 96.5 fl (82.0-101.0); MEAN PLATELET VOLUME 11.3 fl (7.4-10.4); MONOCYTE # 0.5 10^3/ul (0.3-0.9); MONOCYTES % 11.2 % (0.0-11.0); NEUTROPHIL # 2.7 10^3/ul (1.6-7.5); NEUTROPHILS % 56.6 % (39.0-77.0); PLATELET COUNT 185 10^3/UL (140-415); RED BLOOD COUNT 4.05 10^6/ul (4.70-6.10)
[2017-11-18 05:13] LABS: WHITE BLOOD COUNT 4.8 10^3/ul (4.8-10.8)
[2017-11-18 05:53] LABS: ANION GAP 13 (8-16); BLOOD UREA NITROGEN 17 mg/dl (7-20); CALCIUM 8.7 mg/dl (8.4-10.2); CARBON DIOXIDE 31 mmol/L (21-31); CHLORIDE 101 mmol/L (97-110); CREATININE 0.66 mg/dl (0.61-1.24); GLUCOSE 109 mg/dl (70-220); POTASSIUM 4.2 mmol/L (3.5-5.1); SODIUM 141 mmol/L (135-144)
[2017-11-18] MEDS: INSULIN ASPART [NOVOLOG] 3 ML PEN SC ×4 (07:50→21:00)
[2017-11-18] MEDS: ASPIRIN (EC) 325 MG TAB PO (08:42)
[2017-11-18] MEDS: ALLOPURINOL 100 MG TAB PO (08:42)
[2017-11-18] MEDS: METOPROLOL 50 MG TAB PO ×2 (08:43→21:14)
[2017-11-18] MEDS: AMLODIPINE 10 MG TAB PO (08:43)
[2017-11-18] MEDS: AMITRIPTYLINE 50 MG TAB PO (21:13)
[2017-11-18] MEDS: ATORVASTATIN 20 MG TAB PO (21:13)
[2017-11-19] MEDS: HYDROCODONE/APAP (10/325) TAB PO ×2 (01:31→09:13)
[2017-11-19] MEDS: ALBUTEROL HFA 8 GM INHALER INH ×7 (01:33→22:00)
[2017-11-19] MEDS: ACCU-CHEK XX ×2 (01:34→20:59)
[2017-11-19] MEDS: INSULIN ASPART [NOVOLOG] 3 ML PEN SC ×4 (08:57→20:59)
[2017-11-19] MEDS: ASPIRIN (EC) 325 MG TAB PO (09:13)
[2017-11-19] MEDS: ALLOPURINOL 100 MG TAB PO (09:13)
[2017-11-19] MEDS: AMLODIPINE 10 MG TAB PO (09:14)
[2017-11-19] MEDS: METOPROLOL 50 MG TAB PO ×2 (09:15→20:48)
[2017-11-19] MEDS: morphine LIQ (10 MG/5 ML) CUP PO (19:26)
[2017-11-19] MEDS: POLYETHYLENE GLYCOL 17 GM PACKET PO (19:26)
[2017-11-19] MEDS: AMITRIPTYLINE 50 MG TAB PO (20:44)
[2017-11-19] MEDS: ATORVASTATIN 20 MG TAB PO (20:44)
[2017-11-20] MEDS: ALBUTEROL HFA 8 GM INHALER INH ×4 (01:52→14:00)
[2017-11-20] MEDS: POLYETHYLENE GLYCOL 17 GM PACKET PO (06:06)
[2017-11-20] MEDS: INSULIN ASPART [NOVOLOG] 3 ML PEN SC ×2 (07:50→11:40)
[2017-11-20] MEDS: ALLOPURINOL 100 MG TAB PO (08:35)
[2017-11-20] MEDS: DOCUSATE SODIUM 100 MG CAP PO (08:35)
[2017-11-20] MEDS: ASPIRIN (EC) 325 MG TAB PO (08:35)
[2017-11-20] MEDS: AMLODIPINE 10 MG TAB PO (08:35)
[2017-11-20] MEDS: METOPROLOL 50 MG TAB PO (08:36)
[2017-11-20] MEDS: HYDROCODONE/APAP (10/325) TAB PO ×2 (08:42→16:19)
[2017-11-20] MEDS ORDERED: POLYETHYLENE GLYCOL 17 GM PACKET GTB (10:00)
[2017-11-20] MEDS: LACTULOSE 30ML CUP PO ×2 (11:08→14:00)
== END 2017-11-20 17:00 | disposition home health service (06) | DRG 470 ==
LOC: REC 09:28 → MS1 20:10
PROVIDERS: Specialist
PROC: 0SRC069 Replacement of Right Knee Joint with Oxidized Zirconium on Polyethylene Synthetic Substitute, Cemented, Open Approach (ICD-10-PCS; principal; 2017-11-13 13:30)
DX: M17.11 Unilateral primary osteoarthritis, right knee (principal); Z68.41 Body mass index [BMI] 40.0-44.9, adult; N17.9 Acute kidney failure, unspecified; I10 Essential (primary) hypertension; E78.5 Hyperlipidemia, unspecified; I25.10 Atherosclerotic heart disease of native coronary artery without angina pectoris; J44.9 Chronic obstructive pulmonary disease, unspecified; G47.33 Obstructive sleep apnea (adult) (pediatric); E11.9 Type 2 diabetes mellitus without complications; M10.9 Gout, unspecified; N40.0 Benign prostatic hyperplasia without lower urinary tract symptoms; Z89.022 Acquired absence of left finger(s); E66.01 Morbid (severe) obesity due to excess calories; Z96.652 Presence of left artificial knee joint; R00.0 Tachycardia, unspecified; Z79.82 Long term (current) use of aspirin
CPT/HCPCS: 71045; 80048; 81001; 81003; 82962; 83735; 84100; 85025; 87086; 88304; 88311; 97110; 97116; 97162; 97530